=== PATIENT | male | born 1980 | race African-American/Black ===

== ENCOUNTER 2017-10-17 11:49 | Emergency (ER) | payer OTHER ==
[~2017-10-17] VITALS: Ht 177.8 cm; Wt 68.0 kg
[2017-10-17] MEDS ORDERED: PROAIR HFA8.5 GM INH (12:06)
[2017-10-17] MEDS ORDERED: PREDNISONE 20 M20 MG PO (12:07)
[2017-10-17 12:46] VITALS: BP 117/61
== END 2017-10-17 12:40 | disposition home or self-care (01) ==
LOC: ER 11:49
DX: J45.901 Unspecified asthma with (acute) exacerbation (principal)

== ENCOUNTER 2017-11-23 11:06 | Emergency (ER) | payer OTHER ==
[~2017-11-23] VITALS: Ht 157.5 cm; Wt 72.6 kg
[~2017-11-23 11:06] MED LIST: PREDNISONE 20 M20 MG PO; PROAIR HFA8.5 GM INH
[2017-11-23] MEDS ORDERED: VALIUM5 MG PO (11:18)
[2017-11-23] MEDS ORDERED: NORCO 5-325 TA1 EACH PO (11:18)
== END 2017-11-23 12:01 | disposition home or self-care (01) ==
LOC: ER 11:06
DX: S39.012A Strain of muscle, fascia and tendon of lower back, initial encounter (principal); J45.909 Unspecified asthma, uncomplicated; X50.0XXA Overexertion from strenuous movement or load, initial encounter; Y93.89 Activity, other specified; Y92.89 Other specified places as the place of occurrence of the external cause; Y99.8 Other external cause status